=== PATIENT | male | born 1970 | race African-American/Black ===

== ENCOUNTER 2018-03-31 22:22 | Inpatient (IN) | payer OTHER ==
[~2018-03-31 22:22] MED LIST: MELATONIN 5 MG TABLETS PO PRN
[2018-03-31 22:45] VITALS: BMI 23.3
--- NOTE | 2018-03-31 23:24 | HP ---
Admission [facility] Chief Complaint: seeking rehab services to maintain abstinence after detox from heroin Allergies/Adverse Reactions: Allergies Allergy/AdvReac Type Severity Reaction Status Date / Time No Known Allergies Allergy Verified 03/31/18 23:21 History of Present Illness: Y.O. MALE WITH HX/O OPIOID/COCAINE/THC DEPENDENCE HERE FOR REHAB SERVICES. CLIENT REPORTS HE DID 2 DAYS DETOX AT [facility] AMA BECUASE HE FELT THREATENED AND THEN ADMITTED TO [facility] FOR DETOX WHERE HE COMPLETED 3 DAYS BEFORE AMA DUE TO A COURT DATE. CLIENT ADMITS TO COMPLETING 5 DAYS OF DETOX. BUT HAS SINCE RELAPSED AND USING HEROIN DAILY. UTOX POSITVE FOR MTD, BZO(DENIES USE), THC, QUANG , OPI,.HE IS ALSO PRESCRIBED SUBOXONE 8/2MG #90 LAST FILLED 03/09/2018. CLIENT REPORTS HE HAS BEEN SELLING THEM BECAUSE THE SBX WAS NOT EFFECTIVE HE WAS USING FENTANYL. STATES LAST TOOK SBX ABOUT 1.5 MONTHS AGO. DENIES HX/O DRUG OVERDOSE, SEIZURES, SI/HI AND A/V HALLUCINATIONS. DENIES ANY SIGNIFICANT PERIOD OF CLEAN TIME. CLIENT WOULD LIKE TO BE RESTARTED ON HIS SBX WHILE IN REHAB. DENIES ANY MTD USE 6 DAYS AGO WHILE IN DETOX. PMHX: DENIES PSYCH: BIPOLAR Exam Limitations: No Limitations - Ebola screening Have you traveled outside of the country in the last 21 days: No Have you had contact with anyone from an Ebola affected area: No Have you been sick,other than usual withdrawal symptoms: No Do you have a fever: No - Review of Systems Constitutional: Chills, Other (BACK PAIN) EENT: reports: Dental Problems (MISSING TEETH) Respiratory: reports: No Symptoms reported Cardiac: reports: No Symptoms Reported GI: reports: Vomiting (X1) : reports: No Symptoms Reported Musculoskeletal: reports: Back Pain Integumentary: reports: No Symptoms Reported Neuro: reports: No Symptoms reported Endocrine: reports: No Symptoms Reported Hematology: reports: No Symptoms Reported Psychiatric: reports: other (BIPOLAR) Other Systems: Reviewed and Negative Patient History - Patient Medical History Hx Anemia: No Hx Asthma: No Hx Chronic Obstructive Pulmonary Disease (COPD): No Hx Cancer: No Hx Cardiac Disorders: No Hx Congestive Heart Failure: No Hx Hypertension: No Hx Hypercholesterolemia: No Hx Pacemaker: No HX Cerebrovascular Accident: No Hx Seizures: No Hx Dementia: No Hx Diabetes: No Hx Gastrointestinal Disorders: No Hx Liver Disease: No Hx Genitourinary Disorders: No Hx Sexually Transmitted Disorders: No Hx Renal Disease (ESRD): No Hx Thyroid Disease: No Hx Human Immunodeficiency Virus (HIV): No Hx Hepatitis C: No Hx Depression: No Hx Suicide Attempt: No Hx Bipolar Disorder: Yes Hx Schizophrenia: No Other Medical History: DENIES - Patient Surgical History Past Surgical History: No - PPD History Previous Implant?: Yes Documented Results: Negative w/o proof Implanted On Prior [facility] Admission?: No PPD to be Administered?: Yes - Smoking Cessation Smoking history: Current every day smoker Aproximately how many cigarettes per day: 10 Cigars Per Day: 0 Hx Chewing Tobacco Use: No Initiated information on smoking cessation: Yes 'Breaking Loose' booklet given: 03/31/18 Family Disease History - Family Disease History Family History: Denies Admission Physical Exam BHS - Vital Signs Vital Signs: Vital Signs - 24 hr 03/31/18 22:36 Temperature 98.2 F Pulse Rate 59 L Respiratory 18 Rate Blood Pressure 115/66 - Physical General Appearance: Yes: Appropriately Dressed HEENTM: Yes: Other (MISSING TEETH) Respiratory: Yes: Chest Non-Tender, Lungs Clear, Normal Breath Sounds, No Respiratory Distress, No Accessory Muscle Use Neck: Yes: No masses,lesions,Nodules, Supple, Trachea in good position Breast: Yes: Breast Exam Deferred Cardiology: Yes: Regular Rhythm, Regular Rate, S1, S2 Abdominal: Yes: Normal Bowel Sounds, Non Tender, Flat, Soft Genitourinary: Yes: Within Normal Limits Back: Yes: Normal Inspection Musculoskeletal: Yes: full range of Motion, Gait Steady Extremities: Yes: Normal Capillary Refill, Normal Inspection, Normal Range of Motion, Non-Tender Neurological: Yes: cuff runner II-XII NML intact, Fully Oriented, Alert, Motor Strength 5/5 Integumentary: Yes: Normal Color, Dry, Warm Lymphatic: Yes: Within Normal Limits - Diagnostic (1) Uncomplicated opioid dependence Current Visit: Yes Status: Chronic (2) Opioid dependence on agonist therapy Current Visit: Yes Status: Chronic (3) Nicotine dependence Current Visit: Yes Status: Chronic Qualifiers: Nicotine product type: cigarettes Substance use status: uncomplicated Qualified Code(s): F17.210 - Nicotine dependence, cigarettes, uncomplicated (4) Bipolar 1 disorder, depressed Current Visit: Yes Status: Suspected (5) Cocaine abuse, uncomplicated Current Visit: Yes Status: Chronic (6) Cannabis abuse, uncomplicated Current Visit: Yes Status: Chronic Cleared for Admission [facility] - Detox or Rehab Detox Regimen/Protocol: Not Applicable Claeared for Rehab Admission: Yes [facility] Breath Alcohol Content Breath Alcohol Content: 0 Urine Drug Screen - Results Urine Drug Screen Results: THC-Marijuana, QUANG-Cocaine, OPI-Opiates, BZO- Benzodiazepines, MTD-Methadone Inpatient Rehab Admission - Initial Determination Are CD services needed?: Yes Free of communicable disease: No Not in need of hospitalization: Yes - Rehab Admission Criteria Previous failed treatment: Yes Poor recovery environment: Yes Comorbidities: Yes Lacks judgement: Yes Patient is meeting Inpatient Rehab admission criteria:: Yes
[2018-03-31] MEDS ORDERED: MENTHOL/PHENOL 1 EACH UD MM PRN (23:49)
[2018-03-31] MEDS ORDERED: guaiFENesin/D-METHORPHAN HB 10 ML UNIT-DOSE CUPS PO PRN (23:49)
[2018-03-31] MEDS ORDERED: MAGNESIUM CITRATE 300 ML BOTTLE PO PRN (23:49)
[2018-03-31] MEDS ORDERED: LOPERAMIDE HCL 2 MG CAPSULE PO PRN (23:49)
[2018-03-31] MEDS ORDERED: MAG HYDROX/AL HYDROX/SIMETH 30 ML UNIT-DOSE CUP PO PRN (23:49)
[2018-03-31] MEDS ORDERED: NICOTINE POLACRILEX 2 MG GUM BC PRN (23:49)
[2018-03-31] MEDS ORDERED: P-EPHED 60MG/TRIPROLIDI 2.5MG TABLET PO PRN (23:49)
[2018-03-31] MEDS ORDERED: IBUPROFEN 400 MG TABLET (FP) PO PRN (23:49)
[2018-03-31] MEDS ORDERED: hydrOXYzine PAMOATE 50 MG CAPSULE (FP) PO PRN (23:49)
[2018-03-31] MEDS ORDERED: ACETAMINOPHEN 325 MG TABLET (FP) PO PRN (23:49)
[2018-03-31] MEDS ORDERED: MAGNESIUM HYDROX 2400MG/30ML ORAL SUSPENSION 30 ML CUP PO PRN (23:49)
[2018-04-01] MEDS: CYCLOBENZAPRINE HCL 5 MG TABLET PO SCH ×3 (01:36→14:17)
[2018-04-01 02:26] LABS: URINE APPEARANCE CLOUDY; URINE BILIRUBIN NEGATIVE (<2.0 mg/dL); URINE COLOR DKYELLOW; URINE GLUCOSE (UA) NEGATIVE (NEGATIVE); URINE KETONE NEGATIVE (NEGATIVE); URINE LEUK ESTERASE TRACE (NEGATIVE); URINE NITRITE NEGATIVE (NEGATIVE); URINE UROBILINOGEN 4.0 E.U/dl mg/dL (0.2-1.0)
[2018-04-01 02:37] LABS: URINE PROTEIN 2+ (NEGATIVE)
[2018-04-01 02:55] LABS: CALCIUM OXALATE CRYSTALS MANY /hpf (NONE SEEN); EPI CELLS RARE /HPF (FEW); URINE BACTERIA RARE /hpf (NONE SEEN); URINE HYALINE CAST 55 /lpf
[2018-04-01 02:56] LABS: URINE MUCUS MANY
--- NOTE | 2018-04-01 06:45 | HP ---
Psychiatrist Admission - Data Date of interview: 04/01/18 Admission source: [facility] Identifying data: This is the first [facility] admission for this 47 years old Black male, father of 2 childre, unemployed on public assistant foreman, domiciled Medical History: Unremarkable. Smokes 10cigarettes daily Psychiatric History: Patient is somewhat irritable, not fully cooperative with the interview complaining of going through withdrawal. Reports being diagnosed with Bipolar Disorder in 2003. Reports 2 previous psychiatric admissions both to [facility] with most recent being in October 2017. Reports non-compliance with [facility] care but visits ED for medication refills. Reports taking Risperdal 0.5 mg po BID and took it last 2 weeks ago. However, according to pharmacy claim, script for medication was filled on 03/17/18. Denies history of previous suicidal attempt. At present, feels very irritable and claims poor sleep Physical/Sexual Abuse/Trauma History: Denies history of emotional, physical or sexual abuse as well as DV relationship Additional Comment: Reports history of multiple previous arrests including 3 felony convictions. Denies being on parole/probation at present Vital Signs: Vital Signs - 24 hr 03/31/18 04/01/18 04/01/18 22:36 01:35 03:30 Temperature 98.2 F 98.5 F Pulse Rate 59 L 61 Respiratory 18 18 18 Rate Blood Pressure 115/66 129/74 Allergies/Adverse Reactions: Allergies Allergy/AdvReac Type Severity Reaction Status Date / Time No Known Allergies Allergy Verified 03/31/18 23:21 Date of last physical exam: 03/31/18 Concur with the findings of this exam: Yes - Substance Abuse/Tx History Hx Alcohol Use: No Hx Substance Use: Yes Substance Use Type: Cocaine (Started using cocaine at age 47, consumes $ 20 worth daily. Last used on 03/31/18), Heroin (Started using heroin at age 45, consumes 10 bags daily. Last used on 03/31/18) Hx Substance Use Treatment: Yes (3-4 previous inpt detox. First inpt rehab) Mental Status Exam - Mental Status Exam Alert and Oriented to: Time, Place, Person Cognitive Function: Fair Patient Appearance: Well Groomed Mood: Irritable Patient Behavior: Uncooperative Speech Pattern: Clear Voice Loudness: Normal Thought Process: Intact, Goal Oriented Hallucinations: Denies Suicidal Ideation: Denies Homicidal Ideation: Denies Insight/Judgement: Fair Sleep: Poorly Appetite: Poor Muscle strength/Tone: Normal Gait/Station: Normal Psychiatric Findings - Problem List ([place] 1, 2,3) (1) Opioid dependence Current Visit: Yes Status: Acute (2) Cocaine dependence Current Visit: Yes Status: Acute (3) Opioid dependence on agonist therapy Current Visit: Yes Status: Chronic (4) Nicotine dependence Current Visit: Yes Status: Chronic Qualifiers: Nicotine product type: cigarettes Substance use status: uncomplicated Qualified Code(s): F17.210 - Nicotine dependence, cigarettes, uncomplicated (5) Bipolar disorder Current Visit: Yes Status: Chronic (6) Substance induced mood disorder Current Visit: Yes Status: Acute (7) Substance-induced sleep disorder Current Visit: Yes Status: Acute - Initial Treatment Plan Initial Treatment Plan: 1) Resume Risperdal 0.5 mg po BID. 2) Start Belsomra 10 mg po HS prn for insomnia. 3) Monitor progress
[2018-04-01 07:27] VITALS: BP 127/71; PULSE 56; TEMP 97.7
[2018-04-01] MEDS ORDERED: NICOTINE 14 MG/24 HOURS TOPICAL PATCH TD SCH (10:00)
[2018-04-01] MEDS ORDERED: PRENATAL VITAMINS W/ FOLIC ACID TABLET (FP) PO SCH (10:00)
[2018-04-01] MEDS ORDERED: risperiDONE 0.5 MG TABLET (FP) PO SCH (11:00)
--- NOTE | 2018-04-01 15:29 | PN ---
[facility] Progress Note Note: PATIENT SEEN FOR REQUEST TO CHANGE TIME FOR SUBOXONE DOSE. PATIENT SCHEDULED TO RECEIVE DOSE OF SUBOXONE AT 10PM TO COMPLETE 24 HOUR WAITING PERIOD HE HAS BEEN USING HEROIN AND FENTANYL PRIOR TO ADMISSION. PATIENT DID NOT AGREE WITH WAITING PERIOD AND STATED HE WANTED TO SIGN OUT AMA. PATIENT ENCOURAGED TO COMPLETE REHAB AND EXPLAINED RISK FACTORS OF RELAPSE WITH SIGNING OUT AMA. PATIENT REFUSED TO STAY. MEDICALLY STABLE. DENIES SI/HI. ENCOURAGED TO ATTEND GROUP MEETINGS AND TO FOLLOW UP WITH PCP IF SYMPTOMS WORSEN.
[2018-04-01] MEDS ORDERED: THIAMINE HCL 100 MG TABLET (FP) PO SCH (22:00)
[2018-04-01] MEDS ORDERED: BUPRENORPHINE/NALOXONE 2 MG/0.5 MG FILM PACKET SL ONE (22:00)
[2018-04-02] MEDS ORDERED: BUPRENORPHINE/NALOXONE 2 MG/0.5 MG FILM PACKET SL SCH (10:00)
--- NOTE | 2018-04-04 22:19 | EKG ---
Test Reason : Blood Pressure : / mmHG Vent. Rate : 061 BPM Atrial Rate : 061 BPM P-R Int : 176 ms QRS Dur : 086 ms QT Int : 410 ms P-R-T Axes : 059 074 043 degrees QTc Int : 412 ms NORMAL SINUS RHYTHM ST ELEVATION, CONSIDER EARLY REPOLARIZATION, PERICARDITIS, OR INJURY NONSPECIFIC ST AND T WAVE ABNORMALITY ABNORMAL ECG NO PREVIOUS ECGS AVAILABLE Confirmed by BISHNU HUDSON MD ([id number]) on 04/04/2018 10:19:19 PM Referred By: Confirmed By:BISHNU HUDSON MD
== END 2018-04-01 14:50 | disposition left against medical advice (07) | DRG 770 ==
LOC: YASAS 22:22 → Y3W 23:33
PROVIDERS: ADMIT Psychiatry & Neurology Psychiatry; ATTEND Psychiatry & Neurology Psychiatry
PROC: HZ42ZZZ Group Counseling for Substance Abuse Treatment, Cognitive-Behavioral (ICD-10-PCS; principal; 2018-03-31)
DX: F11.20 Opioid dependence, uncomplicated (principal); F14.20 Cocaine dependence, uncomplicated; F12.10 Cannabis abuse, uncomplicated; F17.210 Nicotine dependence, cigarettes, uncomplicated; F31.9 Bipolar disorder, unspecified; F19.24 Other psychoactive substance dependence with psychoactive substance-induced mood disorder; F19.282 Other psychoactive substance dependence with psychoactive substance-induced sleep disorder
CPT/HCPCS: 81003; 81015; 93005; 93010